=== PATIENT | female | born 1965 | race Caucasian/White ===

== ENCOUNTER → 2019-02-10 | Outpatient (CLI) | payer BC, OTHER ==
--- NOTE | 2019-02-10 14:08 | KCIC ---
MRI Brain without contrast History: Migraine variant, left-sided numbness and myoclonus, trauma to the top of the head previously, headache, left body numbness Technique: Multiplanar, multisequential noncontrast MR imaging was performed of the brain. Comparison: None Findings: There is some motion degradation. There is no evidence of recent infarct or cytotoxic edema. The ventricles, sulci, and cisterns are within normal limits in size and configuration. There is no significant midline shift, intraaxial mass effect, or focal abnormal extra-axial fluid collection. There is no significant signal abnormality including hemosiderin deposition of the brain parenchyma. There is preservation of the major intracranial flow-voids at the skull base. There is mild patchy fluid and thickening of the right mastoid air cells.The cerebellar tonsils are normal in location. There is no significant abnormality of the pineal gland or pituitary gland. There is negligible patchy ethmoid air cell mucosal thickening. Heterogeneous signal of the marrow of the clivus may be due to hyperplastic red marrow. There is probable protrusion C3-4 contributing to at least mild spinal stenosis. Impression: 1. There is no significant intracranial abnormality. 2. There is probable protrusion at C3-4 contributing to at least mild spinal stenosis. Electronically signed by: Nadir Marion MD (02/10/2019 2:05 PM) [facility]
== END | disposition home or self-care (01) ==
LOC: KCIC MRI 12:56
PROVIDERS: ATTEND Psychiatry & Neurology Neurology with Special Qualifications in Child Neurology
DX: E23.7 Disorder of pituitary gland, unspecified (principal); G43.809 Other migraine, not intractable, without status migrainosus; R20.0 Anesthesia of skin; G25.3 Myoclonus
CPT/HCPCS: 70551

== ENCOUNTER → 2019-02-11 | Outpatient (CLI) | payer OTHER ==
--- NOTE | 2019-02-11 18:49 | EEG ---
DATE OF SERVICE: 02/11/2019 EEG NUMBER: [id number]. OBJECTIVE: The patient is a 53-year-old female with episodes of myoclonus. DESCRIPTION: This is a digital study. Electrodes are placed according to international 10-20 system. Bipolar and referential montages are available. Activation procedures typically include hyperventilation and intermittent photic stimulation. INTERPRETATION: The waking background consists of 9-10 Hz, 50-100 microvolt activity, symmetrically distributed over parietooccipital regions and reactive to eye opening. Hyperventilation and intermittent photic stimulation are noncontributory. IMPRESSION: This electroencephalogram with the patient awake and asleep is within normal limits. There is no focal, paroxysmal, or epileptiform activity. Thank you for letting us help with the patient's care. RJ HUERTA MD DR: MIKO/babar JOB#: [id number] / [id number] leah Morel, nurse practitionerSanam
== END | disposition home or self-care (01) ==
LOC: RT 07:41
PROVIDERS: ATTEND Psychiatry & Neurology Neurology with Special Qualifications in Child Neurology
DX: G25.3 Myoclonus (principal); R06.4 Hyperventilation
CPT/HCPCS: 95816

== ENCOUNTER → 2019-10-07 | Outpatient (CLI) | payer OTHER ==
--- NOTE | 2019-10-07 09:55 | KCIC ---
MRI of the lumbar spine without contrast 10/07/2019 CLINICAL HISTORY: Chronic low back pain. TECHNIQUE: Unenhanced T1-weighted and T2-weighted sagittal and axial and inversion recovery sagittal images of the lumbar spine were obtained. FINDINGS: Comparison study is dated 09/05/2018. Minimal S-shaped curvature of the thoracolumbar spine is seen. Degenerative signal changes are seen involving all of the disks of the lower thoracic and throughout the lumbar spine. Degenerative signal changes are seen within the marrow surrounding these discs. The conus medullaris is normal morphology, position, and signal characteristics. The changes of degenerative disc disease are seen throughout the lumbar disc spaces consisting of mild to moderate generalized disc bulges, degenerative changes involving the facet joints and mild to moderate ligamentum flavum hypertrophy. A 3 mm synovial cyst is seen projecting medially and slightly anteriorly from the right facet joint at L3-4. These findings do not result in definite areas of significant central spinal canal or neural foraminal stenosis. IMPRESSION: The changes of degenerative disc disease are seen throughout the lumbar spine. These findings do not result in significant central spinal canal or neural foraminal stenosis at any level. Electronically signed by: Nestor Qureshi MD (10/07/2019 9:53 AM) [facility]
--- NOTE | 2019-10-07 12:58 | KCIC ---
Exam: Right Upper Quadrant Ultrasound 10/07/2019 9:00 AM Indication: Right upper quadrant pain Technique: Multiple realtime grayscale sonographic images were obtained over the abdomen. Static images were submitted for interpretation. Comparisons: None Findings: The pancreas is poorly visualized. The liver is normal in size measuring 15.4 cm longitudinally. There is a normal hepatic echotexture. No focal lesions are identified. The gallbladder is nondistended. There is no evidence for cholelithiasis. There is no wall thickening, or pericholecystic fluid. The common bile duct is within normal limits measuring 4.6 mm in diameter. The Right kidney is normal in size measuring 11.4 x 5.1 x 4.9 cm. There is no evidence for mass, nephrolithiasis, or hydronephrosis No ascites is identified Impression: Normal right upper quadrant ultrasound Electronically signed by: Aamir Elizondo MD (10/07/2019 12:56 PM) [facility]
== END | disposition home or self-care (01) ==
LOC: KCIC MRI 07:54
PROVIDERS: ATTEND Registered Nurse
DX: M51.36 Other intervertebral disc degeneration, lumbar region (principal); R10.11 Right upper quadrant pain; M71.38 Other bursal cyst, other site
CPT/HCPCS: 72148; 76705

== ENCOUNTER → 2021-12-19 | Day surgery (SDC) | payer BC, OTHER ==
[~2021-12-19] VITALS: Ht 167.6 cm; Wt 113.6 kg
[~2021-12-19] MED LIST: IV RINGERS,LACTATED 1000ML 1,000 ML IV SCH; LEVO75TA5 PO; PROPOFOL 10 MG/ML (20ML) VIAL. IV ONE
[2021-12-19 11:19] VITALS: BP 127/68
[2021-12-19 12:30] VITALS: BP 129/66
--- NOTE | 2021-12-20 19:14 | PATHOLOGY ---
[facility] Accession Number: [id number] . 01 Material submitted: . pylorus - PREPYLORUS BIOPSY . 01 Clinical history: . EPIGASTRIC PAIN . 02 Diagnosis: Gastric biopsy, prepylorus: - Congestion and slight chronic inflammation. (JPM:pit; 12/20/2021) [facility] 12/20/2021 1410 Local . 02 Comment: Sections of the prepyloric gastric biopsy reveal gastric antral mucosa showing congestion and slight chronic inflammation. A properly controlled immunoperoxidase stain for Helicobacter is negative for Helicobacter organisms. (JPM:pit; 12/20/2021) . Special stain performed: Immunoperoxidase stain for Helicobacter pylori. . 02 Electronically signed: . Karan Santizo MD, Pathologist NPI- [id number] . 01 Gross description: . The specimen is received in formalin, labeled "[place], [place], prepylorus BX". Received is a single segment of pale sosa tissue measuring 0.4 cm in maximum dimension. The specimen is entirely submitted in cassette A1. ([facility]; 12/19/2021) N[facility]/NRI 12/19/2021 2134 Local . 02 Pathologist provided ICD-10: K29.50 . 02 CPT . 067448, [id number] Specimen Comment: A courtesy copy of this report has been sent to [phone], [phone] Specimen Comment: [id number] Specimen Comment: Report sent to / DR LEMUS Specimen Comment: A duplicate report has been generated due to demographic updates. Performed at: [address], [place], [place] [id number] MD Gregory Simon MD Phone: [phone] Performed at: 02 [facility] [address] [place], [place] [id number] MD Karan Santizo MD Phone: [phone]
== END | disposition home or self-care (01) ==
LOC: ENDOS 10:55
PROVIDERS: ATTEND Surgery
DX: R10.13 Epigastric pain (principal); K29.50 Unspecified chronic gastritis without bleeding; K25.9 Gastric ulcer, unspecified as acute or chronic, without hemorrhage or perforation; K31.89 Other diseases of stomach and duodenum; G47.30 Sleep apnea, unspecified; E03.9 Hypothyroidism, unspecified; Z79.899 Other long term (current) drug therapy; Z98.890 Other specified postprocedural states
CPT/HCPCS: 43239; J2704; 88305; 88342